=== PATIENT | female | born 1980 | race Caucasian/White ===

== ENCOUNTER 2019-06-29 15:00 | Emergency (ER) | payer BC ==
--- NOTE | 2019-06-29 15:42 | ER Document Report ---
ED Medical Screen (RME) - General Chief Complaint: Headache Stated Complaint: HEAD PAIN Time Seen by Provider: 06/29/19 15:34 Primary Care Provider: RHONDA MELO PA [Primary Care Provider] - Follow up as needed Mode of Arrival: Ambulatory Information source: Patient Notes: Patient is a 38-year-old female presented to the emergency department with complaints of intermittent sharp stabbing pains to the left side of her head that started on . She denies a baseline headache, states the pains come out of nowhere are sharp and very severe. She denies any recent head trauma, denies any nausea, vomiting or diarrhea. Exam: Patient alert, oriented, no focal neurological deficits noted. Patient currently denies any pain. I have greeted and performed a rapid initial assessment of this patient. A comprehensive ED assessment and evaluation of the patient, analysis of test results and completion of the medical decision making process will be conducted by additional ED providers. I have specifically instructed the patient or family members with the patient to immediately return to any nursing staff should anything change in the patient's condition or with their chief complaint. This medical record was dictated with voice recognizing software. There may be grammatical, syntax errors that are unintended. TRAVEL OUTSIDE OF THE [place] IN LAST 30 DAYS: No - Related Data Allergies/Adverse Reactions: strawberry [[place]] Allergy (Mild, Verified 06/29/19 15:01) Vomiting Sulfa (Sulfonamide Antibiotics) Allergy (Verified 06/29/19 15:01) hydromorphone HCl [From Dilaudid] Adverse Reaction (Severe, Verified 06/29/19 15:01) SEVERE NAUSEA/VOMITING Past Medical History - Social History Frequency of alcohol use: None Drug Abuse: None - Past Medical History Cardiac Medical History: Denies: Hx Coronary Artery Disease, Hx Heart Attack, Hx Hypertension Pulmonary Medical History: Denies: Hx Asthma, Hx Bronchitis, Hx COPD, Hx Pneumonia Neurological Medical History: Denies: Hx Cerebrovascular Accident, Hx Seizures Renal/ Medical History: Denies: Hx Peritoneal Dialysis Musculoskeltal Medical History: Denies Hx Arthritis Past Surgical History: Reports: Hx Abdominal Surgery - hernia repair, Hx Breast Surgery - augementation, Hx Section, Hx Orthopedic Surgery - scoleosis surg, Hx Tubal Ligation - Immunizations Hx Diphtheria, Pertussis, Tetanus Vaccination: Yes Physical Exam - Vital signs Vitals: Temp Pulse Resp BP Pulse Ox 98.2 F 84 14 129/89 H 100 06/29/19 15:07 06/29/19 15:07 06/29/19 15:07 06/29/19 15:07 06/29/19 15:07 Course - Vital Signs Vital signs: Temp Pulse Resp BP Pulse Ox 98.2 F 84 14 129/89 H 100 06/29/19 15:07 06/29/19 15:07 06/29/19 15:07 06/29/19 15:07 06/29/19 15:07 Doctor's Discharge - Discharge Referrals: RHONDA MELO PA [Primary Care Provider] - Follow up as needed
--- NOTE | 2019-06-29 16:09 | RADIOLOGY REPORT (SQ) ---
EXAM DESCRIPTION: CT HEAD WITHOUT COMPLETED DATE/TIME: 06/29/2019 4:01 pm REASON FOR STUDY: left head pain intermittent since COMPARISON: None. TECHNIQUE: Axial images acquired through the brain without intravenous contrast. Images reviewed wi th bone, brain and subdural windows. Additional sagittal and coronal reconstructions were generated. Images stored on PACS. All CT scanners at this facility use dose modulation, iterative reconstruction, and/or weight based d osing when appropriate to reduce radiation dose to as low as reasonably achievable (ALARA). [facility]: Dose Right [facility]: CareDose [facility]: Dose Right [facility]: Teradose 4D [facility]: [employer] RADIATION DOSE: CT Rad equipment meets quality standard of care and radiation dose reduction techniq ues were employed. CTDIvol: 53.2 mGy. DLP: 937 mGy-cm. mGy. LIMITATIONS: None. FINDINGS: VENTRICLES: Normal size and contour. CEREBRUM: No masses. No hemorrhage. No midline shift. No evidence for acute infarction. Normal gra y/white matter differentiation. No areas of low density in the white matter. CEREBELLUM: No masses. No hemorrhage. No alteration of density. No evidence for acute infarction. EXTRAAXIAL SPACES: No fluid collections. No masses. ORBITS AND GLOBE: No intra- or extraconal masses. Normal contour of globe without masses. CALVARIUM: No fracture. PARANASAL SINUSES: No fluid or mucosal thickening. SOFT TISSUES: No mass or hematoma. OTHER: No other significant finding. IMPRESSION: NORMAL BRAIN CT WITHOUT CONTRAST. EVIDENCE OF ACUTE STROKE: NO. COMMENT: Quality ID # [id number]: Final reports with documentation of one or more dose reduction techniques (e.g., Automated exposure control, adjustment of the mA and/or kV according to patient size, use of iterative reconstruction technique) TECHNICAL DOCUMENTATION: JOB ID: [id number] [employer]- All Rights Reserved Reading location - IP/workstation name: [email or web address]
[2019-06-29 16:55] LABS: ABSOLUTE EOSINOPHILS # (AUTO) 0.1 10^3/uL (0.0-0.6); ABSOLUTE MONOCYTES (AUTO) 0.3 10^3/uL (0.1-1.4); ABSOLUTE NEUT (AUTO) 3.2 10^3/uL (1.7-8.2); BASOPHILS % (AUTO) 0.3 % (0-2); HEMATOCRIT 40.1 % (36.0-47.0); HEMOGLOBIN 13.1 g/dL (12.0-15.5); LYMPHOCYTES % (AUTO) 35.7 % (13-45); MEAN CORPUSCULAR HEMOGLOBIN 28.8 pg (27.0-33.4); MEAN CORPUSCULAR HGB CONC 32.7 g/dL (32.0-36.0); MEAN CORPUSCULAR VOLUME 88 fl (80-97); MONOCYTES % (AUTO) 5.8 % (3-13); PLATELET COUNT 341 10^3/uL (150-450); RED BLOOD COUNT 4.55 10^6/uL (3.72-5.28); RED CELL DISTRIBUTION WIDTH 14.2 % (11.5-14.0); SEGMENTED NEUTROPHILS % (AUTO) 57.2 % (42-78); TOTAL CELLS COUNTED % (AUTO) 100 %; WHITE BLOOD COUNT 5.6 10^3/uL (4.0-10.5)
[2019-06-29 17:16] LABS: ALBUMIN 4.2 g/dL (3.5-5.0); ALKALINE PHOSPHATASE 53 U/L (38-126); ANION GAP 7 (5-19); ASPARTATE AMINO TRANSFERASE 26 U/L (14-36); BILIRUBIN,DIRECT 0.2 mg/dL (0.0-0.4); BILIRUBIN,TOTAL 0.3 mg/dL (0.2-1.3); BLOOD UREA NITROGEN 13 mg/dL (7-20); CALCIUM 9.4 mg/dL (8.4-10.2); CARBON DIOXIDE 29 mmol/L (22-30); CHLORIDE 104 mmol/L (98-107); GLUCOSE 93 mg/dL (75-110); POTASSIUM 4.3 mmol/L (3.6-5.0); TOTAL PROTEIN 7.1 g/dL (6.3-8.2)
[2019-06-29] MEDS ORDERED: KETOROLAC TROMETHAMINE 60 MG/2 ML SDV IM ONE (17:30)
[2019-06-29] MEDS ORDERED: METOCLOPRAMIDE HCL INJ/PF 10 MG/2 ML SDV IM ONE (17:30)
[2019-06-29] MEDS ORDERED: DIPHENHYDRAMINE HCL 50 MG/ML VIAL IM ONE (17:31)
[2019-06-29 17:42] LABS: ERYTHROCYTE SEDIMENTATION RATE 18 mm/hr (0-20)
--- NOTE | 2019-06-29 18:06 | ER Document Report ---
HPI - HPI Patient complains to provider of: left sided sharp head pain Time Seen by Provider: 06/29/19 15:34 Onset/Duration: Sudden, Intermittent Quality of pain: Sharp Severity: Moderate Pain Level: 3 Context: 38 yr old female pt, with the listed pmh, here for multiple brief sharp stabbing pains to the left posterior portion of her head intermittently many times a day for the last 3 days. denies actual diffuse ocampo per say. states gets multiple shock like pains that each shock only last a second but reoccurs for at the most 2mins repetitively and then will go away for hours and come back spontaneously. she isn't able to tell me anything that makes it worse or better or triggers it. no hx of this before. hasn't taken anything for her sx or sought care until now. not worst ocampo of life. denies sudden onset. has had similar ocampo's before in the past. no photophobia. no phonophobia, and no vomiting. no blood thinners. 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 states when she puts her hair up or moves her hair around s ometimes it feels worse however. denies eye strain or eye complaints. hasn't seen a neurologist. no neck surgeries. has had neg mri's of her head and spine in the past she thinks. i do not have access to these records for review however. denies prior hx of Temporal Arteritis or Trigeminal neuralgia or hx of any autoimmune dz or forms of arteritisis. no fevers, rash, uri sx, dizziness, vision changes, tinnitus, cp, sob, numbness, tingling, weakness, saddle anesthesia, incontinence, uti sx, neck pain/stiffness, or any other sx. no recent abx or steroids. no hx of diabetes or asthma. no change in caffeine intake, meds, or diet. denies or intoxication. no recent illness. no fall or trauma. no narcotic pain meds. no tick bites. no personal or family hx of rare brain conditions or sudden at a young age. no hx of mi or cva or tia. no syncope. no ams, one sided weakness, facial droop, or slurred speech, no other complaints at this time. Similar symptoms previously: No Recently seen / treated by doctor: No - ROS Systems Reviewed and Negative: Yes All other systems reviewed and negative - to include 10 systems, unless mentioned in the hpi - REPRODUCTIVE Reproductive: DENIES: : - DERM Skin Color: Normal, [place] Past Medical History - General Information source: Patient - Social History Smoking Status: Never Smoker Frequency of alcohol use: None Drug Abuse: None Lives with: Spouse/Significant other Family History: Reviewed & Not Pertinent Patient has suicidal ideation: No Patient has homicidal ideation: No - Past Medical History Cardiac Medical History: Denies: Hx Coronary Artery Disease, Hx Heart Attack, Hx Hypertension Pulmonary Medical History: Denies: Hx Asthma, Hx Bronchitis, Hx COPD, Hx Pneumonia Neurological Medical History: Denies: Hx Cerebrovascular Accident, Hx Seizures Endocrine Medical History: Reports: None Renal/ Medical History: Denies: Hx Peritoneal Dialysis Musculoskeletal Medical History: Denies Hx Arthritis Past Surgical History: Reports: Hx Abdominal Surgery - hernia repair, Hx Breast Surgery - augementation, Hx Section, Hx Orthopedic Surgery - scoliosis surg, Hx Tubal Ligation - Immunizations Immunizations up to date: Yes Hx Diphtheria, Pertussis, Tetanus Vaccination: Yes Vertical Provider Document - CONSTITUTIONAL Exam Limitations: No Limitations Notes: GENERAL_APPEARANCE: well_nourished, alert, cooperative, no obvious discomfort. Pleasant, young female, smiling, speaking in full sentences, in no sign of pain or resp distress, easily sitting up. at bedside VITALS: reviewed, see vital signs table. HEAD: normocephalic and atraumatic, no raccoon eyes, no plata signs. no swelling or ttp. there is no rash or skin changes in the hair or scalp. no crepitation. no ttp over the temporal arteries bilat EARS: canals_clear_bilat, TMs_clear, no_discharge_from_ears. no hemotympanum EYES: EOMI without pain, conjunctiva_clear. PERRL, eyelids wnl. no drainage. no ttp or crepitation of the orbits. no sign of orbital/periorbital cellulitis. no hyphema. no subconjunctival hemorrhage. MOUTH: no_lacerations inside_mouth. no broken teeth. no tmj clicking or ttp. pharynx wnl. tongue protrudes midline. no drooling, tripoding, voice change, or stridor, no thrush or oral lesions. no tongue or lip swelling. NOSE: no drainage or epistaxis NECK: no_swelling\tenderness on the neck. no midline bony tenderness. no step offs or deformities. full rom. full strength. no meningeal signs. no sign of central cord syndrome. neg kernig. neg brudinski. no nuchal rigidity. HEART: normal_rate, normal_rhythm, LUNGS: ctab. no chest wall ttp. no overlying skin changes. no flail chest or crepitation. ABDOMEN: normal_BS, soft, no_abd_tenderness, no rebound, guarding, distension, or peritoneal signs. no cva ttp. no overlying skin changes. BACK: no midline bony tenderness. no step offs or deformities RECTAL: deferred; however, no sign of loss of bowel or bladder or soiling of clothing. EXTREMITIES: strength 5/5 in all_extremities, good pulses all_extremities, no_abrasions\lacerations in the extremities, no_swelling\tenderness in the extremities. full rom. normal gait. good hand animal attendants and trainers. brisk cap refill. no shortening or rotation of the limbs or other signs of deformities unless otherwise noted. SKIN: warm, dry, good_color. no other grossly visible overlying skin changes or signs of trauma unless otherwise noted. NEURO: reflexes symmetric throughout, cranial nerves 2 - 12 intact, motor_intact, sensory_intact. cerebellar function intact [place]_COMA_SCORE: (adult) - eyes_open_spontaneously_4, verbal_conve rses_and_oriented_5, motor_obeys_commands_6, [place]_coma_total_15, MENTAL_STATUS: speech_clear, oriented_X_3, responds_appropriately to questions. - INFECTION CONTROL TRAVEL OUTSIDE OF THE [place] IN LAST 30 DAYS: No Course - Re-evaluation Re-evalutation: pt here for brief intermittent recurrent sharp pains to the left posterior aspect of her head x 3days. labs unremarkable. ct brain neg per rad and reivewed bymyself. sx seem to be too posterior for trigeminal neuralgia and don't involve the face or anterior portion of head. she responded well to meds listed. advised sx care. advised to f/u with pcp/neuro in 1-2 days. return for any worsening symptoms. vss. well appearing. satting well on ra. neurononfocal. pt understands and agrees to plan. On reexam, pt improved with tx listed. remained stable. nontoxic. well appearing. pain controlled. tolerating po. requesting to go home. neurononfocal case discussed with ER Attending, Dr. martinez, who directed and agrees with plan of care and advised no further workup indicated at this time and pt is stable for dc home with close f/u with pcp/specialist. Documentation achieved through voice recording which my lead to some occasional accidental typographical errors. Extensive efforts have been made to proof read documentation to make sure these are the least as possible. Category Date Time Status CT HEAD WITHOUT [CT] Stat Exams 06/29/19 15:38 Completed CBC WITH DIFF [HEME] Stat Lab 06/29/19 16:41 Completed COMPREHENSIVE METABOLIC PANEL [CHEM] Stat Lab 06/29/19 16:41 Completed Sed Rate [ERYTHROCYTE SEDIMENTATION RATE] [HEME] Stat Lab 06/29/19 16:41 Completed Diphenhydramine HCl [Benadryl Inj 50 mg/1 ml Vial] Med 06/29/19 17:31 Discontinued 25 mg IM NOW ONE Ketorolac Tromethamine [Toradol Inj/Pf 60 mg/2 ml Sdv] Med 06/29/19 17:30 Discontinued 60 mg IM NOW ONE Metoclopramide HCl [Reglan Inj/Pf 10 mg/2 ml Sdv] Med 06/29/19 17:30 Discontinued 10 mg IM NOW ONE - Vital Signs Vital signs: Temp Pulse Resp BP Pulse Ox 98.2 F 84 14 129/89 H 100 06/29/19 15:07 06/29/19 15:07 06/29/19 15:07 06/29/19 15:07 06/29/19 15:07 Temp Pulse Resp BP Pulse Ox 06/29/19 18:49 97.8 F 70 14 126/79 H 100 06/29/19 15:07 98.2 F 84 14 129/89 H 100 - Laboratory Result Diagrams: 06/29/19 16:41 06/29/19 16:41 Laboratory results interpreted by me: 06/29/19 16:41 RDW 14.2 H Labs- Entire Visit 06/29/19 06/29/19 16:41 16:41 WBC 5.6 RBC 4.55 Hgb 13.1 Hct 40.1 MCV 88 MCH 28.8 MCHC 32.7 RDW 14.2 H Plt Count 341 Seg Neutrophils % 57.2 Lymphocytes % 35.7 Monocytes % 5.8 Eosinophils % 1.0 Basophils % 0.3 Absolute Neutrophils 3.2 Absolute Lymphocytes 2.0 Absolute Monocytes 0.3 Absolute Eosinophils 0.1 Absolute Basophils 0.0 ESR 18 Sodium 139.6 Potassium 4.3 Chloride 104 Carbon Dioxide 29 Anion Gap 7 BUN 13 Creatinine 0.62 Est GFR ( Amer) > 60 Est GFR (Non-Af Amer) > 60 Glucose 93 Calcium 9.4 Total Bilirubin 0.3 Direct Bilirubin 0.2 Neonat Total Bilirubin Not Reportable Neonat Direct Bilirubin Not Reportable Neonat Indirect Bili Not Reportable AST 26 ALT 19 Alkaline Phosphatase 53 Total Protein 7.1 Albumin 4.2 - Diagnostic Test Radiology reviewed: Image reviewed, Reports reviewed Radiology results interpreted by me: Head CT 06/29/19 15:38 IMPRESSION: NORMAL BRAIN CT WITHOUT CONTRAST. EVIDENCE OF ACUTE STROKE: NO. Discharge - Discharge Clinical Impression: Head pain Qualifiers: Headache type: unspecified Headache chronicity pattern: unspecified pattern Intractability: not intractable Qualified Code(s): R51 - Headache Condition: Good Disposition: HOME, SELF-CARE Instructions: Headache ([facility]) Additional Instructions: Follow-up with PCP/neuro in 1 to 2 days. Return for any worsening symptoms. tylenol or motrin as needed for any pain. drink plenty of fluids. Referrals: RHONDA MELO PA [NO LOCAL MD] - Follow up tomorrow MIGUEL CHOWDHURY MD [NO LOCAL MD] - Follow up tomorrow
[2019-06-29 18:52] VITALS: BP 126/79
== END 2019-06-29 18:53 | disposition home or self-care (01) ==
LOC: ER 15:00
DX: R51 Headache (principal)
CPT/HCPCS: 99284; 96372; 36415; 85025; 85652; 80053; 70450; J1200; J1885; J2765